=== PATIENT | male | born 1990 | race Caucasian/White ===

== ENCOUNTER 2018-07-27 20:46 | Emergency (ER) | payer SELFPAY ==
[~2018-07-27] VITALS: Ht 170.2 cm; Wt 69.3 kg
[2018-07-27 21:58] VITALS: BP 124/84
[2018-07-27] MEDS ORDERED: PROPOFOL 10 MG/ML, 20ML ONE (22:34)
== END 2018-07-28 00:10 | disposition home or self-care (01) ==
LOC: ED 07-28 00:04
DX: T18.128A Food in esophagus causing other injury, initial encounter (principal); X58.XXXA Exposure to other specified factors, initial encounter; Y93.89 Activity, other specified; Y92.89 Other specified places as the place of occurrence of the external cause; Y99.8 Other external cause status
CPT/HCPCS: 99285